=== PATIENT | female | born 1940 | race Caucasian/White ===

== ENCOUNTER 2018-03-13 14:19 | Emergency (ER) | payer MEDICARE, BC ==
[~2018-03-13] VITALS: Ht 154.9 cm; Wt 105.5 kg
[~2018-03-13 14:19] MED LIST: ALBUTEROL SUL0.083 % IN; ANTIVERT PO; CALAN SR240 MG PO; CEPHALEXIN500 MG PO; COZAAR50 MG PO; DOXAZOSIN4 MG PO; FLONASE 60 DOS0.05 %; HCTZ; HYDRALAZINE25 MG PO; KLONOPIN0.5 MG PO; LISINOPRIL5 MG OR; LORTAB5 OR; METFORMIN500 M2 PO; PRAVACHOL40 MG PO; PROAIR HFA IN; ROBITUSSIN AC10 ML PO; VERAPAMIL PO; VERAPAMIL180 M2 OR; XANAX0.25 MG PO; ZOCOR40 MG OR
--- NOTE | 2018-03-13 15:55 | NUR ---
NEB TX PULLED FOR WRONG PT.
[2018-03-13 16:07] LABS: HEMATOCRIT 41.1 % (37.0-47.0); HEMOGLOBIN 13.2 g/dl (12.0-16.0); IMMATURE GRANULOCYTES 0.2 % (0.0-5.0); MEAN CELL VOLUME 93.8 fL CALC (80.0-100.0); MEAN CORPUSCULAR HGB 30.1 pG CALC (26.0-32.0); MEAN CORPUSCULAR HGB CONC 32.1 g/L CALC (32.0-36.0); NEUT# 6.06 thou/uL (2.00-7.15); RED BLOOD COUNT 4.38 mill/uL (4.20-5.60)
[2018-03-13 16:27] LABS: BILIRUBIN, TOTAL 0.5 mg/dL (0.0-1.4); CREATININE 1.2 mg/dL (0.5-1.0); TOTAL PROTEIN 7.1 g/dL (6.3-8.2)
[2018-03-13 16:32] LABS: ALBUMIN 4.1 g/dL (3.2-5.0); POTASSIUM 4.6 mmol/l (3.5-5.1)
[2018-03-13 16:51] LABS: URINE BILIRUBIN - DIPSTICK NEGATIVE (NEGATIVE); URINE BLOOD DIPSTICK NEGATIVE (NEGATIVE); URINE COLOR YELLOW; URINE GLUCOSE - DIPSTICK NEGATIVE (NEGATIVE); URINE KETONE NEGATIVE (NEGATIVE); URINE LEUK ESTERASE NEGATIVE (NEGATIVE); URINE NITRITE - DIPSTICK NEGATIVE (Negative); URINE PROTEIN - DIPSTICK 30 mg/dL (NEG-TRACE); URINE SPECIFIC GRAVITY >=1.030; URINE UROBILINOGEN - DIPSTICK 0.2 E.U./dL (0.2)
[2018-03-13 16:59] LABS: URINE RBC 0-2 RBC/hpf (0-5); URINE SQUAMOUS EPITHELIAL CELL FEW EPI/hpf (0-FEW); URINE WBC 0-2 WBC/hpf (0-5)
[2018-03-13] MEDS ORDERED: ZITHROMAX250 MG PO (17:11)
[2018-03-13 17:44] VITALS: BP 126/78
== END 2018-03-13 17:46 | disposition home or self-care (01) ==
LOC: ED 14:19
PROVIDERS: Emergency Medicine
DX: B34.9 Viral infection, unspecified (principal); R50.9 Fever, unspecified; J02.9 Acute pharyngitis, unspecified; R05 Cough; I10 Essential (primary) hypertension; E11.9 Type 2 diabetes mellitus without complications; Z79.84 Long term (current) use of oral hypoglycemic drugs

== ENCOUNTER 2018-04-09 14:55 | Emergency (ER) | payer MEDICARE, BC ==
[~2018-04-09] VITALS: Ht 154.9 cm; Wt 100.0 kg
[~2018-04-09 14:55] MED LIST changes: +ZITHROMAX250 MG PO
[2018-04-09] MEDS ORDERED: CEPHALEXIN500 M1 PO (15:33)
[2018-04-09 15:35] VITALS: BP 149/65
== END 2018-04-09 15:35 | disposition home or self-care (01) ==
LOC: ED 14:55
DX: N39.0 Urinary tract infection, site not specified (principal); R30.0 Dysuria; R50.9 Fever, unspecified; R35.0 Frequency of micturition

== ENCOUNTER 2020-01-31 16:25 | Emergency (ER) | payer MEDICARE ==
[~2020-01-31] VITALS: Ht 154.9 cm; Wt 85.0 kg
[~2020-01-31 16:25] MED LIST changes: +CEPHALEXIN500 M1 PO
[2020-01-31 17:29] LABS: HEMATOCRIT 41.9 % (37.0-47.0); IMMATURE GRANULOCYTES 0.3 % (0.0-5.0); MEAN CELL VOLUME 92.1 fL CALC (80.0-100.0); MEAN CORPUSCULAR HGB 28.6 pG CALC (26.0-32.0); NEUT# 2.05 thou/uL (2.00-7.15); RED BLOOD COUNT 4.55 mill/uL (4.20-5.60); RED CELL DISTRI WIDTH 13.3 % (11.5-15.5)
[2020-01-31 17:46] LABS: ALBUMIN 3.8 g/dL (3.2-5.0); BILIRUBIN, TOTAL 0.4 mg/dL (0.0-1.4); CREATININE 1.2 mg/dL (0.5-1.0); POTASSIUM 4.1 mmol/l (3.5-5.1)
[2020-01-31] MEDS ORDERED: TESSALON PERLE100 MG PO (18:37)
[2020-01-31 18:39] VITALS: BP 184/90
--- NOTE | 2020-02-02 09:12 | NUR ---
Notified patient of positive Covid results. Patient states she is feeling much better. Patient denies breathing difficulties. Advised patient to quarantine until contacted by the [facility] with further instructions. Advised patient to return to the ED with any SOB, difficulty breathing or other urgent needs. Patient verbalized understanding.
== END 2020-01-31 18:50 | disposition home or self-care (01) ==
LOC: ED 16:25
DX: U07.1 COVID-19 (principal); R52 Pain, unspecified; E11.9 Type 2 diabetes mellitus without complications; I10 Essential (primary) hypertension; E78.5 Hyperlipidemia, unspecified; Z85.528 Personal history of other malignant neoplasm of kidney; Z90.5 Acquired absence of kidney; Z79.84 Long term (current) use of oral hypoglycemic drugs

== ENCOUNTER 2023-03-20 17:31 | Observation (INO) | payer MEDICARE ==
[~2023-03-20] VITALS: Ht 154.9 cm; Wt 86.1 kg
[~2023-03-20 17:31] MED LIST changes: +APRESOLINE50 MG PO; +ELIQUIS2.5 MG PO; +ISOSORB MONO10 MG PO; +METOPROLOL TART50 MG PO; +TESSALON PERLE100 MG PO; +VITAMIN D-32000 UNI1 PO
[2023-03-20 18:04] LABS: HEMATOCRIT 34.9 % (37.0-47.0); HEMOGLOBIN 10.8 g/dl (12.0-16.0); IMMATURE GRANULOCYTES 0.1 % (0.0-5.0); LYMPH% 23.5 % (15-41); MEAN CELL VOLUME 93.8 fL CALC (80.0-100.0); MEAN CORPUSCULAR HGB CONC 30.9 g/dL CAL (32.0-36.0); MONO% 7.2 % (2-13); NEUT# 6.07 thou/uL (2.00-7.15); NEUT% 68.2 % (42-76); RED BLOOD COUNT 3.72 mill/uL (4.20-5.60); RED CELL DISTRI WIDTH 13.7 % (11.5-15.5)
[2023-03-20] MEDS ORDERED: ALPRAZolam 0.25 MG PO ONE (18:05)
[2023-03-20 18:31] LABS: ALBUMIN 3.9 g/dL (3.2-5.0); ALKALINE PHOSPHATASE 117 u/l (38-126); BILIRUBIN, TOTAL 0.4 mg/dL (0.02-1.3); CHLORIDE 110 mmol/l (95-108); POTASSIUM 3.9 mmol/l (3.5-5.1); SGOT/AST 35 u/l (9-36); SODIUM 140 mmol/l (137-146); TOTAL PROTEIN 6.8 g/dL (6.3-8.2)
[2023-03-20 18:39] LABS: ANION GAP 15 (6-22 (CALC)); BUN 52 mg/dL (8-23); BUN/CREATININE RATIO 20 (12-20 (CALC)); CARBON DIOXIDE 19 mmol/l (22-30); CREATININE 2.6 mg/dL (0.5-1.0); GFR FOR AFR.AMER. 21 ML/MIN (>=60 (CALC)); GFR OTHER RACES 18 ML/MIN (>=60 (CALC))
[2023-03-20] MEDS ORDERED: CALCIUM GLUCONATE 1 GM in SODIUM CHLORIDE 0.9% 50 ML IV ONE (19:05)
[2023-03-20] MEDS ORDERED: AZITHROMYCIN 500 MG in SODIUM CHLORIDE 0.9% 250 ML IV ONE (20:20)
[2023-03-20] MEDS ORDERED: MAGNESIUM HYDROXIDE 30 ML UDC PO PRN (20:45)
[2023-03-20] MEDS ORDERED: SODIUM CHLORIDE 0.9% 1,000 ML IV PRN (20:45)
[2023-03-20] MEDS ORDERED: ACETAMINOPHEN 325 MG/TAB PO PRN (20:45)
[2023-03-20] MEDS ORDERED: IPRATROPIUM-Albuterol 0.5MG-2.5MG/3 ML NEB PRN (20:55)
[2023-03-20] MEDS ORDERED: ALPRAZolam 0.25 MG PO PRN (20:55)
[2023-03-20] MEDS ORDERED: APIXABAN BASE 2.5 MG/TAB TAB PO SCH (21:00)
[2023-03-20 21:23] LABS: URINE BILIRUBIN - DIPSTICK Negative (NEGATIVE); URINE BLOOD DIPSTICK Negative (NEGATIVE); URINE COLOR Yellow; URINE GLUCOSE - DIPSTICK Negative (NEGATIVE); URINE KETONE Negative (NEGATIVE); URINE LEUK ESTERASE Trace (NEGATIVE); URINE NITRITE - DIPSTICK Negative (Negative); URINE PH 5.5 (4.5-8.0); URINE PROTEIN - DIPSTICK Negative (NEG-TRACE); URINE SPECIFIC GRAVITY 1.015; URINE UROBILINOGEN - DIPSTICK 0.2 E.U./dL (0.2)
[2023-03-20 22:35] VITALS: BP 155/67
[2023-03-21 00:18] VITALS: BP 134/47
[2023-03-21 04:55] VITALS: BP 150/60
[2023-03-21 06:28] LABS: BASO% 0.1 % (0-3); EOS% 2.1 % (0-8); HEMATOCRIT 36.6 % (37.0-47.0); HEMOGLOBIN 11.2 g/dl (12.0-16.0); IMMATURE GRANULOCYTES 0.2 % (0.0-5.0); LYMPH% 21.3 % (15-41); MEAN CELL VOLUME 93.4 fL CALC (80.0-100.0); MEAN CORPUSCULAR HGB 28.6 pG CALC (26.0-32.0); MEAN CORPUSCULAR HGB CONC 30.6 g/dL CAL (32.0-36.0); MONO% 6.7 % (2-13); NEUT# 5.56 thou/uL (2.00-7.15); NEUT% 69.6 % (42-76); RED BLOOD COUNT 3.92 mill/uL (4.20-5.60); RED CELL DISTRI WIDTH 13.6 % (11.5-15.5)
[2023-03-21 06:47] LABS: ALBUMIN 3.8 g/dL (3.2-5.0); CREATININE 1.9 mg/dL (0.5-1.0); MAGNESIUM 2.2 mg/dL (1.6-2.3); TOTAL PROTEIN 6.4 g/dL (6.3-8.2)
[2023-03-21 06:51] LABS: BILIRUBIN, TOTAL 0.6 mg/dL (0.02-1.3)
[2023-03-21 07:15] VITALS: BP 159/71
[2023-03-21 12:15] VITALS: BP 154/61
[2023-03-21] MEDS ORDERED: LOPRESSOR25 M1 PO (12:36)
[2023-03-21] MEDS ORDERED: AZITHROMYCIN 500 MG in SODIUM CHLORIDE 0.9% 250 ML IV SCH (21:00)
== END 2023-03-21 14:19 | disposition home or self-care (01) ==
LOC: ED 17:31 → ED-I 19:55 → ED 20:44 → MS2 20:45
PROVIDERS: Nurse Practitioner; ADMIT Student in an Organized Health Care Education/Training Program; ATTEND Student in an Organized Health Care Education/Training Program
DX: R00.1 Bradycardia, unspecified (principal); I12.9 Hypertensive chronic kidney disease with stage 1 through stage 4 chronic kidney disease, or unspecified chronic kidney disease; E11.22 Type 2 diabetes mellitus with diabetic chronic kidney disease; N18.4 Chronic kidney disease, stage 4 (severe); I48.11 Longstanding persistent atrial fibrillation; E78.5 Hyperlipidemia, unspecified; Z85.528 Personal history of other malignant neoplasm of kidney; Z86.73 Personal history of transient ischemic attack (TIA), and cerebral infarction without residual deficits; Z20.822 Contact with and (suspected) exposure to COVID-19
CPT/HCPCS: G0378